=== PATIENT | male | born 1975 | race Caucasian/White ===

== ENCOUNTER 2016-12-19 12:27 | Emergency (ER) | payer MEDICAID, MEDICARE, OTHER ==
[2016-12-19 13:06] VITALS: TEMP 98.1
--- NOTE | 2016-12-19 13:28 | C.PDOC ---
History Of Present Illness A 41 year old male presents to the emergency room with neck pain and back pain for 3 days. Patient has a several year history of chronic neck and back pain s/ p a neck surgery. Patient describes the worsening pain in the back of the neck as a stabbing sensation that radiates to the lumbar region of the back. Patient notes that he does not take any medications for pain and has not been on medications since his previous ER visit 4 months ago. Patient denies any injury/ trauma, numbness, weakness, any sensory changes, any urinary complaints, headaches, dizziness, or any other complaints. Time Seen by Provider: 12/19/16 13:19 Chief Complaint (Nursing): Upper Extremity Problem/Injury History Per: Patient History/Exam Limitations: no limitations Onset/Duration Of Symptoms: Days (3) Current Symptoms Are (Timing): Still Present Quality: "Pain", Other (Stabbing) Severity: Mild Exacerbating Factor(s): Nothing Recent travel outside of the [place]: No Past Medical History Reviewed: Historical Data, Nursing Documentation, Vital Signs Vital Signs: Last Vital Signs Temp 98.1 F 12/19/16 13:06 Pulse 79 12/19/16 14:27 Resp 18 12/19/16 14:27 BP 159/85 H 12/19/16 14:27 Pulse Ox 98 12/19/16 14:27 - Medical History PMH: Chronic Pain Surgical History: Back Surgery (neck sx) Family History: States: No Known Family Hx - Social History Hx Alcohol Use: Yes Hx Substance Use: No Review Of Systems Constitutional: Negative for: Fever, Chills Gastrointestinal: Negative for: Nausea, Vomiting, Diarrhea Musculoskeletal: Positive for: Neck Pain, Back Pain Neurological: Negative for: Weakness, Numbness, Headache, Dizziness Physical Exam - Physical Exam Appears: Well, Non-toxic Skin: Normal Color, Warm, Dry, No Rash Head: Atraumatic, Normacephalic Neck: Normal ROM, No Midline Cervical Tenderness, Paracervical Tenderness, Supple Cardiovascular: Rhythm Regular Respiratory: Normal Breath Sounds, No Rales, No Rhonchi, No Wheezing Gastrointestinal/Abdominal: Soft, No Tenderness Back: No CVA Tenderness, No Vertebral Tenderness, No Paraspinal Tenderness Extremity: Normal ROM, No Tenderness Neurological/Psych: Oriented x3, Normal Speech, Normal Motor, Normal Sensation ED Course And Treatment O2 Sat by Pulse Oximetry: 97 Progress Note: Patient was given Flexeril, Toradol, and SOLU-Medrol. On reassessment, patient is resting comfortably, with improvement of neck pain and back pain. Patient remains afebrile, with no bony tenderness, extremity numbness or weakness, or abdominal pain. Patient is ambulatory in the emergency department. Patient was advised to follow up with physician/clinic in 1-2 days. Disposition - Disposition Disposition: HOME/ ROUTINE Disposition Time: 13:26 Condition: GOOD Additional Instructions: Follow up with PMD and surgeons Prescriptions: Cyclobenzaprine [Cyclobenzaprine HCl] 1 tab PO Q8H PRN #25 tab PRN Reason: Muscle Spasm Naproxen [Naprosyn] 1 tab PO BID PRN #25 tab PRN Reason: Pain Prednisone 1 tab PO DAILY #4 tablet Instructions: Cervical Radiculopathy (ED) - Clinical Impression Clinical Impression: Cervical radiculopathy - Scribe Statement The provider has reviewed the documentation as recorded by the Swatiiblaura Roman All medical record entries made by the Russell were at my direction and personally dictated by me. I have reviewed the chart and agree that the record accurately reflects my personal performance of the history, physical exam, medical decision making, and the department course for this patient. I have also personally directed, reviewed, and agree with the discharge instructions and disposition.
[2016-12-19 14:27] VITALS: BP 159/85; PULSE 79; RESP 18
[2016-12-20 08:47] VITALS: O2SAT 97
== END 2016-12-19 14:28 | disposition home or self-care (01) ==
LOC: C.ER 12:27 → SUPCPDRO 12:27 → C.ER 14:28
DX: M54.12 Radiculopathy, cervical region (principal)
CPT/HCPCS: 96372; 99283; J1885

== ENCOUNTER 2017-07-07 18:10 | Emergency (ER) | payer OTHER ==
[2017-07-07 18:16] VITALS: BMI 42.0
[2017-07-07 18:17] VITALS: TEMP 98
--- NOTE | 2017-07-07 19:15 | C.PDOC ---
History Of Present Illness 41 yr old M c/o chronic left neck pain with radiation to head and left arm for 3 yrs. Pt had a work related injury that was treated with neck fusion 3 yrs ago and he was in pain since. Pt denies any new trauma/fall. Pt did not take any pain meds today. Pt is not attending PT or pain management. Pt denies any motor or sensory deficits. Pt also c/o left 3rd mid finger abrasion for several days. Time Seen by Provider: 07/07/17 18:38 Chief Complaint (Nursing): Back Pain History Per: Patient History/Exam Limitations: no limitations Onset/Duration Of Symptoms: Days Current Symptoms Are (Timing): Worse Quality Of Discomfort: Sharp Severity: Severe Pain Scale Rating Of: 10 Previous Symptoms: Neck Pain, Chronic Pain, Prior Surgery Past Medical History Reviewed: Historical Data, Nursing Documentation, Vital Signs Vital Signs: Last Vital Signs Temp 98.0 F 07/07/17 18:16 Pulse 81 07/07/17 18:16 Resp 19 07/07/17 18:16 BP 131/88 07/07/17 18:16 Pulse Ox 97 07/07/17 19:15 - Medical History PMH: Chronic Pain Surgical History: Back Surgery (neck sx) Family History: States: No Known Family Hx - Social History Hx Alcohol Use: Yes Hx Substance Use: No - Immunization History Hx Tetanus Toxoid Vaccination: Yes Hx Influenza Vaccination: Yes Hx Pneumococcal Vaccination: Yes Review Of Systems Except As Marked, All Systems Reviewed And Found Negative. Constitutional: Negative for: Fever Respiratory: Negative for: Cough Skin: Positive for: Lesions Neurological: Positive for: Headache. Negative for: Weakness, Numbness, Incoordination, Change in Speech, Altered Mental Status Physical Exam - Physical Exam Appears: Well, Non-toxic, No Acute Distress Skin: Warm, Dry, Other (left 3rd volar finger with abrasion, (+) surrounding erythema) Head: Atraumatic, Normacephalic Nose: Normal Oral Mucosa: Moist Tongue: Normal Appearing Lips: Normal Appearing Throat: Normal Neck: No Midline Cervical Tenderness, Supple, Other (left lateral neck tenderness to palpation) Lymphatic: No Adenopathy Chest: Symmetrical Cardiovascular: Rhythm Regular Respiratory: Normal Breath Sounds Gastrointestinal/Abdominal: Normal Exam Extremity: Normal ROM ED Course And Treatment O2 Sat by Pulse Oximetry: 97 Pulse Ox Interpretation: Normal Progress Note: Pt treated with toradol, prednisone and flexeril Reassessment Condition: Improved Disposition Counseled Patient/Family Regarding: Studies Performed, Diagnosis, Need For Followup, Rx Given - Disposition Referrals: Clif Castellanos MD [Staff Provider] - Disposition: HOME/ ROUTINE Disposition Time: 20:11 Condition: STABLE Additional Instructions: FOLLOW UP WITH PMD ON SUNDAY FOR RE-EVALUATION. IF SYMPTOMS GET WORSE OR ANY NEW CONCERNING SYMPTOMS DEVELOP RETURN TO ED. Prescriptions: Mupirocin 2% Ointment [Bactroban Ointment] 1 appl TP BID #1 tube Cyclobenzaprine [Cyclobenzaprine HCl] 10 mg PO TID PRN #30 tab PRN Reason: Pain, Moderate (4-7) Methylprednisolone [Medrol Dose Pack (21 tabs)] 4 mg PO DAILY #21 mg Naproxen [Naprosyn] 1 tab PO BID PRN #20 tab PRN Reason: Pain Instructions: Cervical Strain (GEN), Abrasion (ED) Forms: [facility] (Bur[place]ian), General Discharge Instructions - Clinical Impression Clinical Impression: Chronic neck pain, Finger abrasion
[2017-07-07] MEDS ORDERED: Bacitracin 500 Units/gm Oint Foilpak UD TOP ONE (19:52)
[2017-07-07] MEDS ORDERED: Bacitracin 500 Units/gm Oint Foilpak UD ONE (19:58)
[2017-07-07 20:24] VITALS: BP 124/75; PULSE 78; RESP 18
[2017-07-07 23:16] VITALS: O2SAT 97
== END 2017-07-07 20:25 | disposition home or self-care (01) ==
LOC: C.ER 18:10
DX: G89.29 Other chronic pain (principal); M54.2 Cervicalgia; S60.413A Abrasion of left middle finger, initial encounter; X58.XXXA Exposure to other specified factors, initial encounter
CPT/HCPCS: 96372; 99285; J1885

== ENCOUNTER 2017-09-07 16:12 | Emergency (ER) | payer OTHER ==
[2017-09-07 16:13] VITALS: BMI 42.0
[2017-09-07 16:27] VITALS: O2SAT 97
--- NOTE | 2017-09-07 17:42 | C.PDOC ---
History Of Present Illness 42 y/o male presents to the ER complaining of chronic left-sided neck pain which has been present since 2014. Patient states that the pain radiates down to his left shoulder. Patient reports that the pain is associated with headache and nausea. He states that he has been having these symptoms intermittently since 2014. Patient reports that he has been using Naproxen and Flexeril which provided no relief. Patient denies having any fall, injury,fever and other medical complaints. Time Seen by Provider: 09/07/17 16:37 Chief Complaint (Nursing): Back Pain History Per: Patient History/Exam Limitations: no limitations Onset/Duration Of Symptoms: Days Current Symptoms Are (Timing): Still Present Severity: Moderate Past Medical History Reviewed: Historical Data, Nursing Documentation, Vital Signs Vital Signs: Last Vital Signs Temp 98.0 F 09/07/17 17:52 Pulse 92 H 09/07/17 17:52 Resp 16 09/07/17 17:52 BP 126/86 09/07/17 17:52 Pulse Ox 97 09/07/17 18:42 - Medical History PMH: Chronic Pain Surgical History: Back Surgery (neck sx), Tonsillectomy Family History: States: No Known Family Hx - Social History Hx Alcohol Use: Yes Hx Substance Use: No - Immunization History Hx Tetanus Toxoid Vaccination: Yes Hx Influenza Vaccination: Yes Hx Pneumococcal Vaccination: Yes Review Of Systems Except As Marked, All Systems Reviewed And Found Negative. Constitutional: Negative for: Fever, Chills Musculoskeletal: Positive for: Neck Pain (left-sided neck pain), Shoulder Pain ( left shoulder pain) Neurological: Negative for: Weakness, Numbness Physical Exam - Physical Exam Appears: Non-toxic, No Acute Distress, Other (uncomfortable) Skin: Normal Color, Warm, No Rash Head: Atraumatic, Normacephalic Eye(s): bilateral: Normal Inspection, PERRL Nose: Normal Oral Mucosa: Moist Neck: No Midline Cervical Tenderness, Other (tenderness to palpation at left lateral neck) Chest: Symmetrical Cardiovascular: Rhythm Regular Respiratory: Normal Breath Sounds, No Accessory Muscle Use, No Rales, No Rhonchi , No Wheezing Extremity: Normal ROM Neurological/Psych: Oriented x3, Normal Speech, Normal Cognition, Normal Motor, Normal Sensation ED Course And Treatment O2 Sat by Pulse Oximetry: 97 (RA) Pulse Ox Interpretation: Normal Progress Note: Patient given Toradol IM, Valium PO, and predniSONE PO. Patient felt better and was discharged with prescriptions for Valium, Naproxen, and predniSONE. Disposition Counseled Patient/Family Regarding: Diagnosis, Need For Followup, Rx Given - Disposition Referrals: [facility] [Outside] Disposition: HOME/ ROUTINE Disposition Time: 17:45 Condition: STABLE Prescriptions: diaZEpam [Valium] 5 mg PO BID PRN #15 tab PRN Reason: Muscle Spasm Naproxen [Naprosyn] 1 tab PO BID PRN #25 tab PRN Reason: Pain predniSONE [predniSONE Tab] 40 mg PO DAILY #8 tab Instructions: Cervical Radiculopathy (ED) Forms: [facility] (Guamanian) Print Language: SAMI - POA Present On Arrival: None - Clinical Impression Clinical Impression: Chronic neck pain, Cervical radiculopathy - Scribe Statement The provider has reviewed the documentation as recorded by the Russell Mcdaniel Provider Attestation: All medical record entries made by the Swatiiblaura were at my direction and personally dictated by me. I have reviewed the chart and agree that the record accurately reflects my personal performance of the history, physical exam, medical decision making, and the department course for this patient. I have also personally directed, reviewed, and agree with the discharge instructions and disposition.
[2017-09-07 17:56] VITALS: BP 126/86; PULSE 92; RESP 16; TEMP 98
== END 2017-09-07 17:53 | disposition home or self-care (01) ==
LOC: C.ER 16:12
DX: M54.12 Radiculopathy, cervical region (principal); G89.29 Other chronic pain; M54.2 Cervicalgia
CPT/HCPCS: 96372; 99284; J1885